=== PATIENT | female | born 1990 | race Caucasian/White ===

== ENCOUNTER 2016-06-01 16:51 | Emergency (ER) | payer SELFPAY ==
[~2016-06-01] VITALS: Ht 160 cm; Wt 68.1 kg
[~2016-06-01 16:51] MED LIST: ULTRAM50 M1 PO
[2016-06-01] MEDS ORDERED: TRAMADOL HYDROC50 MG PO (17:31)
[2016-06-01] MEDS ORDERED: PENICILLN VK500 MG PO (17:31)
[2016-06-01 17:37] VITALS: BP 125/78
== END 2016-06-01 17:37 | disposition home or self-care (01) | DRG 159 ==
LOC: ED 16:51
PROC: 0C95XZZ Drainage of Upper Gingiva, External Approach (ICD-10-PCS; principal; 2016-06-01)
DX: K04.7 Periapical abscess without sinus (principal); K08.89 Other specified disorders of teeth and supporting structures

== ENCOUNTER 2016-06-11 16:59 | Emergency (ER) | payer SELFPAY ==
[~2016-06-11] VITALS: Ht 160 cm; Wt 68.0 kg
[~2016-06-11 16:59] MED LIST changes: +PENICILLN VK500 MG PO; +TRAMADOL HYDROC50 MG PO
[2016-06-11] MEDS ORDERED: LORTAB 5-325 MG1 TAB PO (17:39)
[2016-06-11] MEDS ORDERED: PENICILLN VK500 MG PO (17:39)
[2016-06-11 17:49] VITALS: BP 134/77
== END 2016-06-11 17:54 | disposition home or self-care (01) | DRG 159 ==
LOC: ED 16:59
DX: K08.89 Other specified disorders of teeth and supporting structures (principal); K02.9 Dental caries, unspecified; K04.7 Periapical abscess without sinus

== ENCOUNTER 2016-06-15 18:49 | Emergency (ER) | payer SELFPAY ==
[~2016-06-15] VITALS: Ht 160 cm; Wt 73.0 kg
[~2016-06-15 18:49] MED LIST changes: +LORTAB 5-325 MG1 TAB PO
[2016-06-15 19:54] VITALS: BP 146/87
== END 2016-06-15 19:49 | disposition home or self-care (01) | DRG 159 ==
LOC: ED 18:49
DX: K03.81 Cracked tooth (principal)

== ENCOUNTER 2016-06-21 20:48 | Emergency (ER) | payer SELFPAY ==
[~2016-06-21] VITALS: Ht 160 cm; Wt 76.2 kg
[2016-06-21] MEDS ORDERED: AMOXICILLIN500 MG PO (21:49)
[2016-06-21] MEDS ORDERED: ULTRAM50 M1 PO (21:49)
[2016-06-21 21:55] VITALS: BP 142/78
== END 2016-06-21 21:58 | disposition home or self-care (01) | DRG 159 ==
LOC: ED 20:48
DX: K08.89 Other specified disorders of teeth and supporting structures (principal); K02.9 Dental caries, unspecified; R51 Headache; R50.9 Fever, unspecified

== ENCOUNTER 2016-06-29 10:40 | Emergency (ER) | payer SELFPAY ==
[~2016-06-29] VITALS: Ht 160 cm; Wt 68.2 kg
[~2016-06-29 10:40] MED LIST changes: +AMOXICILLIN500 MG PO
[2016-06-29 11:33] LABS: HEMATOCRIT 32.8 % (37.0-47.0); HEMOGLOBIN 9.6 g/dl (12.0-16.0); IMMATURE GRANULOCYTES 0.3 % (0.0-1.0); MEAN CELL VOLUME 67.1 fL CALC (80.0-100.0); MEAN CORPUSCULAR HGB 19.6 pG CALC (26.0-32.0); MEAN CORPUSCULAR HGB CONC 29.3 g/L CALC (32.0-36.0); NEUT# 6.64 thou/uL (2.00-7.15); RED BLOOD COUNT 4.89 mill/uL (4.20-5.60); RED CELL DISTRI WIDTH 19.9 % (11.5-15.5)
[2016-06-29 11:33] LABS: URINE BILIRUBIN - DIPSTICK NEGATIVE (NEGATIVE); URINE BLOOD DIPSTICK TRACE-INTACT (NEGATIVE); URINE CLARITY CLEAR; URINE COLOR YELLOW; URINE GLUCOSE - DIPSTICK NEGATIVE (NEGATIVE); URINE KETONE NEGATIVE (NEGATIVE); URINE LEUK ESTERASE NEGATIVE (NEGATIVE); URINE NITRITE - DIPSTICK NEGATIVE (Negative); URINE PH 5.5 (4.5-8.0); URINE PROTEIN - DIPSTICK NEGATIVE (NEG-TRACE); URINE SPECIFIC GRAVITY 1.025; URINE UROBILINOGEN - DIPSTICK 0.2 E.U./dL (0.2)
[2016-06-29 11:34] LABS: BARBITURATES NEGATIVE (NEGATIVE); COCAINE NEGATIVE (NEGATIVE); METHADONE NEGATIVE (NEGATIVE); OXCYCODONE NEGATIVE (NEGATIVE); TETRAHYDROCANNABIONOL NEGATIVE (NEGATIVE); TRICYLIC ANTIDEPRESSANTS NEGATIVE (NEGATIVE)
[2016-06-29 11:41] VITALS: BP 138/72
[2016-06-29 11:45] LABS: ALBUMIN 4.6 g/dL (3.2-5.0); ALKALINE PHOSPHATASE 61 u/l (38-126); ANION GAP 17 (6-22 (CALC)); BILIRUBIN, TOTAL 0.4 mg/dL (0.0-1.4); BUN 12 mg/dL (7-17); BUN/CREATININE RATIO 20 (12-20 (CALC)); CALCIUM 9.6 mg/dL (8.4-10.2); CARBON DIOXIDE 26 mmol/l (22-30); CHLORIDE 102 mmol/l (95-108); CREATININE 0.6 mg/dL (0.5-1.0); GFR > 60 ML/MIN (>=60 (CALC)); GFR FOR AFR.AMER. > 60 ML/MIN (>=60 (CALC)); GLUCOSE 103 mg/dL (65-105); POTASSIUM 3.2 mmol/l (3.5-5.1); SGOT/AST 14 u/l (14-36); SGPT/ALT 21 u/l (9-52); SODIUM 142 mmol/l (137-146)
[2016-06-29 11:57] LABS: MYOGLOBIN 25 ng/mL (0 - 62)
== END 2016-06-29 12:43 | disposition home or self-care (01) | DRG 312 ==
LOC: ED 10:40
PROVIDERS: Emergency Medicine
DX: R55 Syncope and collapse (principal); M79.604 Pain in right leg; M79.605 Pain in left leg

== ENCOUNTER 2016-07-15 12:35 | Emergency (ER) | payer SELFPAY ==
[~2016-07-15] VITALS: Ht 160 cm; Wt 78.0 kg
[2016-07-15] MEDS ORDERED: TRAMADOL HYDROC50 MG PO (12:58)
[2016-07-15] MEDS ORDERED: PENICILLN VK500 MG PO (12:58)
[2016-07-15 13:00] VITALS: BP 123/77
== END 2016-07-15 13:00 | disposition home or self-care (01) | DRG 159 ==
LOC: ED 12:35
DX: K08.89 Other specified disorders of teeth and supporting structures (principal)